=== PATIENT | female | born 1960 | race Caucasian/White ===

== ENCOUNTER → 2018-11-22 | Outpatient (CLI) | payer OTHER ==
[~2018-11-22] MED LIST: ALLERGY RELIEF10 MG PO; ATOR40TA; ATOR80 PO; BUPR150ER PO; Estroven Regu400 MCG PO; Keflex500 MG PO; MOVE FREE ULTR1 EACH; NAPR220; OSTEO BI-FLEX1 EAC2 PO; PRAV20 PO; PRAVASTATIN; Pravachol80 MG PO; TRAM50 PO; Ultram50 MG PO; WELLBUTRIN; Zofran Odt4 MG SL
== END ==
LOC: LAB 09:00 → LAB SHORT 09:00
PROVIDERS: Student in an Organized Health Care Education/Training Program
DX: Z00.00 Encounter for general adult medical examination without abnormal findings (principal)
CPT/HCPCS: G0145

== ENCOUNTER → 2019-07-07 | Outpatient (CLI) | payer OTHER ==
[2019-07-07 14:43] LABS: BASOPHILS ABSOLUTE AUTO 0.06 K/mm3 (0.00-0.23); BASOPHILS PERCENT AUTO 1 % (0-2); EOSINOPHILS ABSOLUTE AUTO 0.05 K/mm3 (0.00-0.68); EOSINOPHILS PERCENT AUTO 0 % (0-6); Hematocrit 44.7 % (33.0-51.0); Hemoglobin 15.3 g/dL (11.5-16.0); IMMATURE GRAN ABSOLUTE AUTO 0.02 K/mm3 (0.00-0.10); IMMATURE GRAN PERCENT AUTO 0 % (0-1); LYMPHOCYTES ABSOLUTE AUTO 3.36 K/mm3 (0.84-5.20); LYMPHOCYTES PERCENT AUTO 29 % (21-46); MONOCYTES ABSOLUTE AUTO 0.55 K/mm3 (0.16-1.47); MONOCYTES PERCENT AUTO 5 % (4-13); Mean Corpuscular HGB Conc 34.2 g/dL (31.5-36.5); Mean Corpuscular Volume 91 fL (80-100); Mean Platelet Volume 9.4 fL (9.1-12.4); NEUTROPHILS ABSOLUTE AUTO 7.45 K/mm3 (1.96-9.15); NEUTROPHILS PERCENT AUTO 65 % (41-73); Platelet Count 364 K/mm3 (150-400); RDW Coefficient Variation 13.1 % (11.7-14.2); RDW Standard Deviation 42.9 fL (35.1-46.3); Red Blood Cell Count 4.93 M/mm3 (3.80-5.20); White Blood Cell Count 11.49 K/mm3 (4.00-11.30)
[2019-07-07 14:55] LABS: Bilirubin, Total 0.3 mg/dL (0.1-1.0); Bun/Creatinine Ratio 18.3 (12.0-20.0); Calcium, Blood 9.6 mg/dL (8.5-10.1); Creatinine, Blood 1.04 mg/dL (0.40-1.00)
== END | disposition home or self-care (01) ==
LOC: LAB SHORT 14:39 → LAB EV 14:39
PROVIDERS: Family Medicine
DX: R80.9 Proteinuria, unspecified (principal)
CPT/HCPCS: 80053; 85025

== ENCOUNTER 2019-07-21 18:26 | Emergency (ER) | payer OTHER ==
[~2019-07-21] VITALS: Ht 149.9 cm; Wt 90.7 kg
== END 2019-07-21 19:15 | disposition home or self-care (01) ==
LOC: ER 18:26
DX: S61.216A Laceration without foreign body of right little finger without damage to nail, initial encounter (principal); E78.5 Hyperlipidemia, unspecified; F17.210 Nicotine dependence, cigarettes, uncomplicated; Z23 Encounter for immunization; Z88.2 Allergy status to sulfonamides; Z91.09 Other allergy status, other than to drugs and biological substances; Z88.5 Allergy status to narcotic agent; Z88.6 Allergy status to analgesic agent; Z79.899 Other long term (current) drug therapy; Z79.2 Long term (current) use of antibiotics; W25.XXXA Contact with sharp glass, initial encounter
CPT/HCPCS: 12001; 90471; 90714; 99282-25

== ENCOUNTER → 2020-01-13 | Outpatient (CLI) | payer OTHER ==
[~2020-01-13] MED LIST changes: +ACET500; +Crestor40 MG; +HYDCHL25; +OMEP20ER
[2020-01-13 13:58] LABS: Microalb/Creat Ratio UR, Rand 802.083 mg/g (0.000-30.000)
== END | disposition home or self-care (01) ==
LOC: LAB SRC 11:48 → LAB SHORT 11:48 → LAB FUT 01-11 13:00 → EDSTATUS 01-11 13:00
PROVIDERS: Student in an Organized Health Care Education/Training Program
DX: E78.2 Mixed hyperlipidemia (principal); I10 Essential (primary) hypertension; R80.9 Proteinuria, unspecified; R73.01 Impaired fasting glucose
CPT/HCPCS: 82043; 82570

== ENCOUNTER 2020-04-10 09:20 | Day surgery (SDC) | payer OTHER ==
--- NOTE | 2020-04-10 11:13 | NUR ---
PT TO STEP FOR POST RAD PROCEDURE RECOVERY. C/O "MILD DISCOMFORT" AT SITE OF BIOPSY. NO SIGNS OF BLEEDING. PT SIPPING ON CLEAR FLUIDS AT THIS TIME.
--- NOTE | 2020-04-10 11:45 | NUR ---
PT RECLINED ON STRETCHER, CROCHETING. NO C/O PAIN OR DISCOMFORT. VSS.
--- NOTE | 2020-04-10 12:38 | NUR ---
NO C/O AT THIS TIME. CONT TO REST ON STRETCHER, CROCHETING AT TIMES. TOLERATING PO INTAKE.
--- NOTE | 2020-04-10 13:24 | NUR ---
DC INSTRUCTIONS REVIEWED WITH PATIENT BY TIAN CHRISTINE PT VERBALIZED UNDERSTANDING OF ALL INSTRUCTIONS GIVEN. AMBULATED TO DC HOME.
== END 2020-04-10 23:50 | disposition home or self-care (01) ==
LOC: CT 09:20
DX: R80.1 Persistent proteinuria, unspecified (principal); I10 Essential (primary) hypertension; K21.9 Gastro-esophageal reflux disease without esophagitis; E78.5 Hyperlipidemia, unspecified; M19.90 Unspecified osteoarthritis, unspecified site; E55.9 Vitamin D deficiency, unspecified; E66.9 Obesity, unspecified; Z68.42 Body mass index [BMI] 45.0-49.9, adult; Z72.0 Tobacco use
CPT/HCPCS: 50200; 77012; 88305; 88313; 88329; 88346; 88348; 88350

== ENCOUNTER → 2020-11-03 | Outpatient (CLI) | payer OTHER ==
[2020-11-03 16:26] LABS: Creatinine, Urine Random 85.2 mg/dL (27.00-270.00); Protein, Urine Random 134.3 mg/dL (0.0-11.9); Protein/Creat Ratio, Ur Random 1.6
== END | disposition home or self-care (01) ==
LOC: LAB 12:24 → LAB SHORT 12:24
PROVIDERS: Student in an Organized Health Care Education/Training Program
DX: N06.1 Isolated proteinuria with focal and segmental glomerular lesions (principal)
CPT/HCPCS: 82570; 84156

== ENCOUNTER → 2021-03-30 | Outpatient (CLI) | payer OTHER ==
[2021-03-30 13:17] LABS: Source, Urine Clean Catch
[2021-03-30 16:03] LABS: Appearance, Urine Clear (Clear); Bilirubin, Urine Neg (Neg); Blood, Urine Neg (Neg); Color, Urine Yellow (P-Yellow); Glucose Qualitative, Urine Neg (Neg); Ketones, Urine Neg (Neg); Leukocyte Esterase, Urine Neg (Neg); Nitrite, Urine Neg (Neg); Protein, Urine 2+ (Neg); Red Blood Cells, Urine 0-2 /hpf (0-2); Urobilinogen, Urine NORM (Normal); White Blood Cells, Urine 0-2 /hpf (0-5)
[2021-03-30 16:04] LABS: Bacteria Rare /hpf; Squamous Epithelial Cells Rare /hpf (Few)
== END | disposition home or self-care (01) ==
LOC: LAB SHORT 13:14
PROVIDERS: Internal Medicine Nephrology
DX: I10 Essential (primary) hypertension (principal)
CPT/HCPCS: 81001

== ENCOUNTER 2022-03-14 06:05 | Emergency (ER) | payer OTHER ==
[~2022-03-14] VITALS: Ht 149.9 cm; Wt 95.2 kg
[2022-03-14] MEDS ORDERED: FUROSEMIDE20 MG PO (06:20)
[2022-03-14] MEDS ORDERED: CELEXA10 MG PO (06:20)
[2022-03-14] MEDS ORDERED: TRAM50 PO (06:21)
[2022-03-14] MEDS ORDERED: LOSA50 PO (06:21)
[2022-03-14] MEDS ORDERED: IMITREX50 M2 PO (06:22)
[2022-03-14] MEDS ORDERED: DICL75ER PO (06:23)
[2022-03-14 06:45] LABS: BASOPHILS ABSOLUTE AUTO 0.05 K/mm3 (0.00-0.23); BASOPHILS PERCENT AUTO 1 % (0-2); EOSINOPHILS ABSOLUTE AUTO 0.02 K/mm3 (0.00-0.68); EOSINOPHILS PERCENT AUTO 0 % (0-6); Hematocrit 41.7 % (33.0-51.0); Hemoglobin 14.2 g/dL (11.5-16.0); IMMATURE GRAN ABSOLUTE AUTO 0.03 K/mm3 (0.00-0.10); IMMATURE GRAN PERCENT AUTO 0 % (0-1); LYMPHOCYTES ABSOLUTE AUTO 2.45 K/mm3 (0.84-5.20); LYMPHOCYTES PERCENT AUTO 26 % (21-46); MONOCYTES ABSOLUTE AUTO 0.65 K/mm3 (0.16-1.47); MONOCYTES PERCENT AUTO 7 % (4-13); Mean Corpuscular HGB 30.4 pg (26.0-34.0); Mean Corpuscular HGB Conc 34.1 g/dL (31.5-36.5); Mean Corpuscular Volume 89 fL (80-100); Mean Platelet Volume 9.6 fL (9.1-12.4); NEUTROPHILS ABSOLUTE AUTO 6.25 K/mm3 (1.96-9.15); NEUTROPHILS PERCENT AUTO 66 % (41-73); Platelet Count 318 K/mm3 (150-400); RDW Coefficient Variation 12.9 % (11.7-14.2); Red Blood Cell Count 4.67 M/mm3 (3.80-5.20); White Blood Cell Count 9.45 K/mm3 (4.00-11.30)
[2022-03-14 07:03] LABS: Albumin, Blood 3.7 g/dL (3.4-5.0); Albumin/Globulin Ratio 0.9 (0.8-1.8); Bilirubin, Total 0.4 mg/dL (0.1-1.0); Bun/Creatinine Ratio 19.5 (12.0-20.0); Calcium, Blood 9.6 mg/dL (8.5-10.1); Creatinine, Blood 0.98 mg/dL (0.40-1.00); Globulin, Blood 4.3 g/dL (2.2-4.0); Potassium, Blood 3.8 mmol/L (3.5-5.5)
== END 2022-03-14 07:50 | disposition home or self-care (01) ==
LOC: ER 06:05
PROVIDERS: Emergency Medicine
DX: R55 Syncope and collapse (principal); R11.10 Vomiting, unspecified; R19.7 Diarrhea, unspecified; S20.212A Contusion of left front wall of thorax, initial encounter; W18.12XA Fall from or off toilet with subsequent striking against object, initial encounter
CPT/HCPCS: 36415; 71101; 80053; 84484; 85025; 93005; 93010; J7030

== ENCOUNTER → 2022-08-28 | Outpatient (CLI) | payer OTHER ==
[~2022-08-28] MED LIST changes: +CELEXA10 MG PO; +DICL75ER PO; +FUROSEMIDE20 MG PO; +IMITREX50 M2 PO; +LOSA50 PO
[2022-08-28 18:58] LABS: Protein, Urine Random 165.7 mg/dL (0.0-11.9); Protein/Creat Ratio, Ur Random 0.6
== END | disposition home or self-care (01) ==
LOC: LAB SHORT 12:45 → LAB 12:45
PROVIDERS: Internal Medicine Nephrology
DX: R80.9 Proteinuria, unspecified (principal)
CPT/HCPCS: 82570; 84156

== ENCOUNTER 2024-09-22 06:05 | Day surgery (SDC) | payer OTHER ==
[~2024-09-22] VITALS: Ht 149.9 cm; Wt 86.9 kg
[2024-09-22] MEDS ORDERED: PROP10 PO (06:40)
[2024-09-22] MEDS ORDERED: POTCIT10 (06:40)
[2024-09-22] MEDS ORDERED: K-Dur10 MEQ (06:41)
[2024-09-22] MEDS ORDERED: CeFAZolin Sodium 2,000 MG VIAL ONE (07:23)
[2024-09-22] MEDS ORDERED: FentaNYL Citrate 50 MCG/ML 2 ML Injection ONE (07:29)
--- NOTE | 2024-09-22 07:29 | NUR ---
09/22/24 0729 KLEBER REINA EKG DONE PRIOR TO PROCEDURE PER ANESTHESIA REVIEW; REVIEWED BY DR SCHROEDER AND DR WHITE " OKAY TO PROCEED PER DR SCHROEDER
[2024-09-22] MEDS ORDERED: SuccINYLCHOLINE Chloride 100 MG/5 ML 5MLSYR ONE (07:47)
[2024-09-22] MEDS ORDERED: Dexamethasone Sod Phos 10 MG/ML 1ML VIAL ONE (07:47)
[2024-09-22] MEDS ORDERED: Ondansetron HCl 2 MG / ML 2ML Vial ONE (07:47)
[2024-09-22] MEDS ORDERED: Rocuronium Bromide 10 MG/ML 5ML Injection IV ONE (07:49)
[2024-09-22] MEDS ORDERED: Bupivacaine 0.5% HCl 5 MG/ML 30MLVIAL XX ONE ×2 (07:50)
[2024-09-22] MEDS ORDERED: Phenylephrine HCl 100 MCG/ML-NS 10MLSYR (1MG/10ML) ONE (07:52)
[2024-09-22] MEDS ORDERED: Sugammadex Sodium 200 MG/2ML SDV (100 MG/ML) ONE (08:06)
[2024-09-22] MEDS ORDERED: Ipratropium/Albuterol SulF 2.5-0.5MG/3 ML Amp ONE (08:49)
--- NOTE | 2024-09-22 09:12 | NUR ---
09/22/24 0911 Terrie Madera received report from jose roberto connelly. per report patient received albuterol nebulizer. pt in recliner on 4l bnc. pt tolerating oral fluids and snacks well. pt c/o headache. pt eating snack before oral pain medication is given. pt denies nausea at this time. turned 02 down to 2L bnc, current o2 sat at 95%. pt calm, cooperative and talkative. jose roberto johnson called ride and gave estimated discharge time.
[2024-09-22] MEDS ORDERED: HYDROcodone 5-APAP 325 TAB ONE (09:19)
[2024-09-22 10:03] VITALS: BP 124/81
== END 2024-09-22 10:03 | disposition home or self-care (01) ==
LOC: ORSCSDS 06:05
PROVIDERS: Surgery
PROC: 0JWT0WZ Revision of Totally Implantable Vascular Access Device in Trunk Subcutaneous Tissue and Fascia, Open Approach (ICD-10-PCS; principal; 2024-09-22 07:30)
DX: C56.3 Malignant neoplasm of bilateral ovaries (principal); T82.518A Breakdown (mechanical) of other cardiac and vascular devices and implants, initial encounter; I12.9 Hypertensive chronic kidney disease with stage 1 through stage 4 chronic kidney disease, or unspecified chronic kidney disease; N18.9 Chronic kidney disease, unspecified; G47.33 Obstructive sleep apnea (adult) (pediatric); J44.9 Chronic obstructive pulmonary disease, unspecified; K21.9 Gastro-esophageal reflux disease without esophagitis; Z87.891 Personal history of nicotine dependence; E78.5 Hyperlipidemia, unspecified; Z85.820 Personal history of malignant melanoma of skin; Z79.899 Other long term (current) drug therapy
CPT/HCPCS: 93005; 93010; A9270; C1788; J0330; J0690; J1100; J1642; J2003; J2371; J2405; J2704; J3010

== ENCOUNTER → 2025-02-06 | Outpatient (CLI) | payer MEDICARE, OTHER ==
[~2025-02-06] MED LIST changes: +K-Dur10 MEQ; +POTCIT10; +PROP10 PO
[2025-02-06 09:24] LABS: Creatinine, Urine Random 154.0 mg/dL (27.00-270.00)
[2025-02-06 09:49] LABS: Protein, Urine Random 216.5 mg/dL (0.0-11.9); Protein/Creat Ratio, Ur Random 1.4
== END ==
LOC: LAB 05:35 → LAB SHORT 05:35
PROVIDERS: Hospitalist
DX: N05.1 Unspecified nephritic syndrome with focal and segmental glomerular lesions (principal)
CPT/HCPCS: 82570; 84156